=== PATIENT | male | born 1995 | race Caucasian/White ===

== ENCOUNTER 2022-02-04 17:24 | Emergency (ER) | payer OTHER, SELFPAY ==
[2022-02-04 17:32] VITALS: BP 174/74; PULSE 85; RESP 14; TEMP 37.1; O2SAT 99; BMI 29.2
--- NOTE | 2022-02-04 17:36 | DI.RAD.S_ITS ---
PROCEDURE: XR KNEE LT 3V INDICATIONS: knee pain,heard a pop while weight lifting. TECHNIQUE: 3 views of the knee were acquired. COMPARISON: None. FINDINGS: Bones: No fractures or dislocations. No suspicious bony lesions. Soft tissues: No joint effusion. No suspicious soft tissue calcifications. IMPRESSION: No acute finding. Dictated by: Santos Swann M.D. on 02/04/2022 at 17:53 Approved by: Santos Swann M.D. on 02/04/2022 at 17:54
--- NOTE | 2022-02-04 17:42 | ED_ITS ---
HPI - Extremity Injury (Lower) <FLAQUITA Moseley - Last Filed: 02/04/22 20:08> General Chief Complaint: Extremity Injury, Lower Stated Complaint: lt knee to ankle pain Time Seen by Provider: 02/04/22 17:37 History of Present Illness HPI Narrative: This is a 26-year-old male who presents to the emergency department for left knee pain after he was lifting something heavy at work prior to arrival in a squatting position and went to stand from squatting felt a pop on the medial/patellar region of his left knee with shooting pain down his left leg to his ankle. He denies any ongoing nerve pain or shooting pain from his knee to his ankle. He states that he feels pain with any sudden movement or unexpected movements. He is bearing weight and tolerates it with pain. He denies any open wound. 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 Related Data Allergies Allergy/AdvReac Type Severity Reaction Status Date / Time No Known Drug Allergies Allergy Verified 02/04/22 17:37 Review of Systems <FLAQUITA Moseley - Last Filed: 02/04/22 20:08> Review of Systems Narrative: Review of systems is negative for acute abnormalities unless otherwise noted in HPI Patient History <FLAQUITA Moseley - Last Filed: 02/04/22 20:08> Social History Smoking Status: Unknown if ever smoked Exam <FLAQUITA Moseley - Last Filed: 02/04/22 20:08> Narrative Exam Narrative: Reviewed vitals signs and nursing notes. General: cooperative, comfortable, in no acute distress, well groomed HEENT: symmetrical facial expressions, moist mucous membranes Cardiovascular: regular rate and rhythm, no peripheral edema, warm extremities Respiratory: normal effort, able to speak in complete sentences, without wheezing, stridor, or abnormal breath sounds. No retractions or tachypnea. GI: abdomen soft, nontender to palpation, nondistended, without masses, rebound tenderness or exquisite tenderness with exam. MSK: moves all extremities, neurovascularly intact, no weakness, normal tone, left knee without any suprapatellar effusion, negative Nicki's, no tenderness over patellar tendon, MCL or LCL, negative Saravia squeeze test, no increased laxity with varus and valgus testing. Patient is ambulatory without deficit, no weakness, PT and DP pulses are 2+, no tenderness over ATFL or CFL, medial or lateral malleoli, dorsiflexion and plantar extension intact without deficit. Skin: brisk capillary refill, without pallor or erythema Neuro: normal speech and cognition, A&O x3, ambulatory, clear speech Psych: mental status is grossly normal, congruent mood, normal affect, pleasant and cooperative Initial Vital Signs Initial Vital Signs: Vital Signs Temperature 98.8 F 02/04/22 17:32 Pulse Rate 85 02/04/22 17:32 Respiratory Rate 14 02/04/22 17:32 Blood Pressure 174/74 H 02/04/22 17:32 Pulse Oximetry 99 02/04/22 17:32 Oxygen Delivery Method 02/04/22 17:32 <Reshma Gonzalez DO - Last Filed: 02/10/22 08:39> Initial Vital Signs Initial Vital Signs: Vital Signs Temperature 98.8 F 02/04/22 17:32 Pulse Rate 85 02/04/22 17:32 Respiratory Rate 14 02/04/22 17:32 Blood Pressure 174/74 H 02/04/22 17:32 Pulse Oximetry 99 02/04/22 17:32 Oxygen Delivery Method 02/04/22 17:32 Course <FLAQUITA Moseley - Last Filed: 02/04/22 20:08> Orders Ordered: Discontinued Medications Ibuprofen (Ibuprofen 400 Mg Tablet) 800 mg PO NOW ONE Stop: 02/04/22 17:45 Last Admin: 02/04/22 17:48 Dose: 800 mg Documented By: CTS Vital Signs Vital signs: Vital Signs - 8 hr 02/04/22 17:32 02/04/22 17:58 02/04/22 17:59 Temperature 98.8 F Pulse Rate 85 93 H Respiratory Rate 14 Blood Pressure 174/74 H Pulse Oximetry 99 99 99 Oxygen Delivery Method Room Air 02/04/22 17:59 02/04/22 19:00 02/04/22 19:00 Temperature Pulse Rate 91 H Respiratory Rate Blood Pressure 156/69 H 142/67 H Pulse Oximetry 100 Oxygen Delivery Method <Reshma Gonzalez DO - Last Filed: 02/10/22 08:39> Orders Ordered: Discontinued Medications Ibuprofen (Ibuprofen 400 Mg Tablet) 800 mg PO NOW ONE Stop: 02/04/22 17:45 Last Admin: 02/04/22 17:48 Dose: 800 mg Documented By: CTS Vital Signs Vital signs: Vital Signs - 8 hr 02/04/22 17:32 02/04/22 17:58 02/04/22 17:59 Temperature 98.8 F Pulse Rate 85 93 H Respiratory Rate 14 Blood Pressure 174/74 H Pulse Oximetry 99 99 99 Oxygen Delivery Method Room Air 02/04/22 17:59 02/04/22 19:00 02/04/22 19:00 Temperature Pulse Rate 91 H Respiratory Rate Blood Pressure 156/69 H 142/67 H Pulse Oximetry 100 Oxygen Delivery Method MDM - Extremity Injury (Lower) <Heather York [facility] - Last Filed: 02/04/22 20:08> Imaging Data Extremity x-ray #1: Radiologist's Impression: PROCEDURE:? XR ANKLE LT MIN 3V ? INDICATIONS:? ankle injury weeks ago ? TECHNIQUE:? 3 views of the ankle were acquired.? ? COMPARISON:? None. ? FINDINGS:? ? Bones:? No fracture, dislocation, or suspicious bone lesion.? Ankle mortise congruent and maintained. ? Soft tissues:? No tibiotalar joint effusion.? Achilles tendon appears normal.? ? ? IMPRESSION:? No acute finding. ? Dictated by: Santos Swann M.D. on 02/04/2022 at 18:32 ? ? Approved by: Santos Swann M.D. on 02/04/2022 at 18:33 ? Extremity x-ray #2: Radiologist's Impression: PROCEDURE:? XR KNEE LT 3V ? INDICATIONS:? knee pain,heard a pop while weight lifting. ? TECHNIQUE:? 3 views of the knee were acquired.? ? COMPARISON:? None. ? FINDINGS:? ? Bones:? No fractures or dislocations.? No suspicious bony lesions.? ? Soft tissues:? No joint effusion.? No suspicious soft tissue calcifications.? ? ? IMPRESSION:? No acute finding. ? ? Dictated by: Santos Swann M.D. on 02/04/2022 at 17:53 ? ? Approved by: Santos Swann M.D. on 02/04/2022 at 17:54 ? 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 He had x-rays today of his right knee and right ankle without any acute findings or abnormalities. His right knee and right ankle exam were without any significant findings either. Recommend patient follow-up with [facility] prior to return to work, he can follow-up with [facility] when [facility] approves this evaluation. He was given ibuprofen in the emergency department and states that he felt better, he is ambulatory without any deficit, does not have any knee effusion or neurovascular compromise. Recommend ice, elevation, avoid overuse. Follow-up with [facility]. Patient is appropriate and amenable to discharge home. Vital signs are stable on repeat examination is unremarkable. Patient has been informed of results. Patient has been given strict return to ER precautions for any new or worsening symptoms. Patient understands to follow up closely with outpatient providers as instructed. Patient understands plan and agrees to discharge home. All questions and concerns answered at this time. Discharge Plan Departure Patient Disposition: Home Clinical Impression: Injury of knee, left Qualifiers: Encounter type: initial encounter Qualified Code(s): S89.92XA - Unspecified injury of left lower leg, initial encounter Instructions: Knee Sprain, DI for Knee Sprain Activity Restrictions/Additional Instructions: *You have been diagnosed with a knee injury. The pop sensation could be ligamental injury, from the meniscus, or nerve pain from movement. Your x-rays of your knee and ankle do not show any joint effusions, fractures, or acute bony abnormalities. It is possible that there is muscular strain and sprain as well. Please immobilize your knee in a knee brace as needed (pun intended). Avoid overuse or over exertion, if it starts feeling better with gentle mobility, please. Please wear a knee brace if you feel instability in your knee, there is no fluid within the joint treated as if it is a sprain unless it does not get better or if it gets any worse than follow-up with orthopedics is indicated. If you have worsening of this please follow-up at [facility]. Please see your primary care provider if this is ongoing and you have already seeing orthopedics. Get cleared by [facility] prior to returning to duty. *What to do: *Please continue to take your regular medications as directed. [ ] New medication prescriptions sent to your pharmacy: [ ] [ ] New medication written as a paper prescription [ x] No new medications given *Please follow up with your primary care provider in 2-3 days, call for an appointment. Let them know you were seen in the Emergency Department and that we asked that you be seen for follow-up. We will electronically transmit a record of today's note if your PCP is in our system *If you do not have a primary care provider please contact [phone] to [facility] with one of the [facility] primary care providers. *Return to Emergency Department if you should have any new, worsening, or concerning symptoms, such as [fever greater than 101F, chills, worsening pain, persistent vomiting or other bothersome symptoms]. Referrals: [facility] [Provider Group] - 5-7 days Provider,Verito ZAMBRANO [Primary Care Provider] - Visit Report Forms: Patient Portal/API <Reshma Gonzalez DO - Last Filed: 02/10/22 08:39> Cosign ED Attending Veliaature Attestation: I was immediately available in the department for consultation. Documentation has been reviewed. I agree with assessment and plan.
[2022-02-04] MEDS: IBUPROFEN 400 MG TABLET 800 MG PO (17:48)
[2022-02-04 17:58] VITALS: O2SAT 99
[2022-02-04 17:59] VITALS: BP 156/69; PULSE 93; O2SAT 99
--- NOTE | 2022-02-04 18:03 | PC.NURSE ---
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
--- NOTE | 2022-02-04 18:14 | DI.RAD.S_ITS ---
PROCEDURE: XR ANKLE LT MIN 3V INDICATIONS: ankle injury weeks ago TECHNIQUE: 3 views of the ankle were acquired. COMPARISON: None. FINDINGS: Bones: No fracture, dislocation, or suspicious bone lesion. Ankle mortise congruent and maintained. Soft tissues: No tibiotalar joint effusion. Achilles tendon appears normal. IMPRESSION: No acute finding. Dictated by: Santos Swann M.D. on 02/04/2022 at 18:32 Approved by: Santos Swann M.D. on 02/04/2022 at 18:33
[2022-02-04 19:00] VITALS: BP 142/67; PULSE 91; O2SAT 100
== END 2022-02-04 19:05 | disposition home or self-care (01) ==
PROVIDERS: Emergency Provider Nurse Practitioner Critical Care Medicine
DX: S89.92XA Unspecified injury of left lower leg, initial encounter (principal); X50.0XXA Overexertion from strenuous movement or load, initial encounter
CPT/HCPCS: 73562; 73610; 99283

== ENCOUNTER 2024-10-28 11:42 | Emergency (ER) | payer OTHER, SELFPAY ==
[2024-10-28 11:44] VITALS: BP 153/78; PULSE 85; RESP 16; TEMP 36.3; O2SAT 95; BMI 33.3
--- NOTE | 2024-10-28 12:04 | ED.BACK ---
HPI - Back Pain/Injury <Alis Aj PA-C - Last Filed: 10/28/24 14:52> General Chief Complaint: Back Pain/Injury Stated Complaint: Back Pain Time Seen by Provider: 10/28/24 12:16 History of Present Illness HPI Narrative: Mr. 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 Patient states he always has some mild low back pain. Yesterday he was lifting heavy tasks at home, did not recall a specific injury however when he woke up this morning he was feeling more sore than usual. He bent down to pick something up and developed acute pain of the back. States the pain is pretty much his entire back muscles however the pain is worse in the right low back and the right thoracic back region. He occasionally feels a tingling sensation in his right leg. Standing straight up makes the pain better, moving around makes it worse. He denies taking any medications prior to arrival. Denies any bowel or bladder incontinence or dysfunction, fevers, chills, weakness, fevers, abdominal pain, chest pain, history of IV drug use, hematuria, dysuria. No surgical hx or prescription medications. Related Data Previous Rx's Medication Instructions Recorded methocarbamol 500 mg tablet 500 mg PO TID PRN muscle spasm #14 10/28/24 tabs prednisone 20 mg tablet 40 mg (2 x 20 mg) PO DAILY 5 days 10/28/24 #10 tabs Allergies Allergy/AdvReac Type Severity Reaction Status Date / Time No Known Drug Allergies Allergy Verified 02/04/22 17:37 Review of Systems <Alis Aj PA-C - Last Filed: 10/28/24 14:52> Review of Systems ROS Unobtainable: All systems reviewed & are unremarkable except as noted in HPI and below Patient History <KINSEY Wilhelm Last Filed: 10/28/24 14:52> alcohol intake frequency: a few times a week Exam <Alis Aj PA-C - Last Filed: 10/28/24 14:52> Narrative Exam Narrative: GENERAL: 29 year old patient appears stated age. Well-developed patient, in no acute distress. HEAD: Atraumatic. Normocephalic. EYES:No scleral icterus. No injection or drainage. NECK: Trachea midline. Cervical ROM intact. CARDIOVASCULAR: Regular rate and rhythm. RESPIRATORY: ?Nonlabored respirations. ?Speaking in clear, full sentences. ?Clear to auscultation. Breath sounds equal bilaterally. No wheezes, rales, or rhonchi. ? GASTROINTESTINAL: Abdomen soft, non-tender, nondistended. EXTREMITIES: No edema or joint tenderness. Strong DP and PT pulses, 5/5 BL plantar/dorsiflexion strength. BACK: No midline spinal tenderness, no pain reproducible with palpation however patient notes worse subjective pain in the right paraspinal lumbar region and right paraspinal thoracic region just below the scapula. NEURO: AOx3. ?Clear speech. ?Moves all 4 extremities appropriately. Steady gait. Sensation intact to light touch in the bilateral lower extremities. SKIN: No rash or erythema of visible areas Initial Vital Signs Initial Vital Signs: Vital Signs Temperature 97.4 F L 10/28/24 11:44 Pulse Rate 85 10/28/24 11:44 Respiratory Rate 16 10/28/24 11:44 Blood Pressure 153/78 H 10/28/24 11:44 Pulse Oximetry 95 10/28/24 11:44 Oxygen Delivery Method Room Air 10/28/24 11:44 <Juliet Boston DO - Last Filed: 10/30/24 16:46> Initial Vital Signs Initial Vital Signs: Vital Signs Temperature 97.4 F L 10/28/24 11:44 Pulse Rate 85 10/28/24 11:44 Respiratory Rate 16 10/28/24 11:44 Blood Pressure 153/78 H 10/28/24 11:44 Pulse Oximetry 95 10/28/24 11:44 Oxygen Delivery Method Room Air 10/28/24 11:44 Course <Alis Aj PA-C - Last Filed: 10/28/24 14:52> Orders Ordered: Discontinued Medications Acetaminophen (Acetaminophen 325 Mg Tablet) 975 mg PO NOW ONE Stop: 10/28/24 12:04 Last Admin: 10/28/24 12:11 Dose: 975 mg Documented By: LANCE Ketorolac Tromethamine (Ketorolac 30 Mg/Ml Vial) 30 mg IM NOW ONE Stop: 10/28/24 12:04 Last Admin: 10/28/24 12:13 Dose: 30 mg Documented By: LANCE Prednisone (Prednisone 20 Mg Tablet) 40 mg PO NOW ONE Stop: 10/28/24 12:04 Last Admin: 10/28/24 12:12 Dose: 40 mg Documented By: LANCE Vital Signs Vital signs: Vital Signs - 8 hr 10/28/24 11:44 10/28/24 12:37 Temperature 97.4 F L 97.5 F L Pulse Rate 85 84 Respiratory Rate 16 18 Blood Pressure 153/78 H Pulse Oximetry 95 96 Oxygen Delivery Method Room Air Room Air <Juliet Boston DO - Last Filed: 10/30/24 16:46> Orders Ordered: Discontinued Medications Acetaminophen (Acetaminophen 325 Mg Tablet) 975 mg PO NOW ONE Stop: 10/28/24 12:04 Last Admin: 10/28/24 12:11 Dose: 975 mg Documented By: LANCE Ketorolac Tromethamine (Ketorolac 30 Mg/Ml Vial) 30 mg IM NOW ONE Stop: 10/28/24 12:04 Last Admin: 10/28/24 12:13 Dose: 30 mg Documented By: LANCE Prednisone (Prednisone 20 Mg Tablet) 40 mg PO NOW ONE Stop: 10/28/24 12:04 Last Admin: 10/28/24 12:12 Dose: 40 mg Documented By: LANCE Vital Signs Vital signs: Vital Signs - 8 hr 10/28/24 11:44 10/28/24 12:37 Temperature 97.4 F L 97.5 F L Pulse Rate 85 84 Respiratory Rate 16 18 Blood Pressure 153/78 H Pulse Oximetry 95 96 Oxygen Delivery Method Room Air Room Air MDM - Back Pain/Injury <Alis Aj PA-C - Last Filed: 10/28/24 14:52> Medical Records Attestation: I reviewed the patient's medical records. 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 Differential diagnosis includes but is not limited to lumbar strain, sprain, herniated disc, lumbar radiculopathy, sciatica, degenerative disc disease, spinal stenosis, nephrolithiasis, etc. On exam the patient is in no acute distress, nontoxic appearing, vital signs appropriate, ambulatory. Lower extremities are neurovascularly intact with good pulses, sensation, strength. He is having diffuse back pain after a bending injury this morning. He does have a history of some chronic low back pain. Intermittent right radicular leg symptoms. No red flag symptoms of bowel or bladder dysfunction, saddle anesthesia, trauma, fevers, IV drug use, history of cancer diabetes. Physical exam reveals no spinal tenderness, no rashes. Pain is reproducible with movement and going from sitting to standing position. Will check POC UA - negative. We will treat in the ED with Toradol, Tylenol, prednisone. Will prescribe 5 day course of prednisone, muscle relaxers, also encouraged ibuprofen and Tylenol, heat therapy, rest, gentle stretching. Discussed follow up with PCP who may refer to ortho if needed for persistent symptoms, discussed strict ED return precautions and risks of muscle relaxers. Patient verbalized understanding of all information is agreeable with the plan. He is stable for discharge home. <Juliet Boston DO - Last Filed: 10/30/24 16:46> Lab Data Labs: Urine Dip Bedside Urine Glucose Negative Bedside Urine Bilirubin - Negative Bedside Urine Ketone - Negative Urine Specific [place] 1.010 Bedside Urine Occult Blood - Negative Bedside Urine pH 7 Bedside Urine Protein - Negative Bedside Urine Urobilinogen - Negative Bedside Urine Nitrite - Negative Bedside Urine Leukocytes - Negative Esterase Discharge Plan Departure Patient Disposition: Home Clinical Impression: Acute right lumbar radiculopathy Lumbar strain Qualifiers: Encounter type: initial encounter Qualified Code(s): S39.012A - Strain of muscle, fascia and tendon of lower back, initial encounter Instructions: DI for Lumbar Radiculopathy Activity Restrictions/Additional Instructions: Dear Jh, Thank you for coming to the emergency department. Today your symptoms are concerning for a strain of your back muscles, in addition to some nerve compression called lumbar radiculopathy. I would like you to complete the course of steroids in addition to using [id number] acetaminophen/Tylenol and ibuprofen/Motrin/Advil. Please rest, avoid heavy lifting or bending over but also avoid prolonged bed rest -- frequent gentle movement and stretching as advised. Using heat on the low back can help loosen up the muscles. You may also use the prescribed muscle relaxer but please be aware that this medication can make you drowsy so he should not use this medication via going to be working, driving, drinking alcohol. You should take steroids / ibuprofen with food, and separate when you take these medications if possible. Steroids should be taken in the beginning of the day to avoid insomnia. Please take Ibuprofen (Motrin/Advil) or Acetaminophen (Tylenol) for pain. These are available over the counter. You may take Ibuprofen 600 mg every 8 hours with food for pain. You may also take Acetaminophen 650 mg every 4-6 hours for pain. Do not exceed 3000 mg of Tylenol a day as this can cause liver damage. Do not drink alcohol with either of these medications. Please follow up with your primary care doctor, if your symptoms are not improving they may refer you to orthopedics for further evaluation. Typically pain from this type of injury will take a few weeks to completely resolve but it should start to get better with the above regimen. Please return to the emergency department if you develop any new or worsening symptoms such as but not limited to weakness, bloody urine, fevers, severe pain or other concerns. Please follow up with your primary care doctor within the next 2-3 days for ER follow-up. (If you do not have a PCP you can call [phone]. ?to schedule an appointment with an [facility] Primary Care Provider) IF YOU DEVELOP ANY NEW OR WORSENING SYMPTOMS, RETURN TO THE ER! Please read the attached instructions, they highlight more specific treatments and interventions for you at home. Thank you for letting me participate in your care, Alis Aj PA-C Prescriptions: New prednisone 20 mg tablet 40 mg PO DAILY 5 Days Qty: 10 0RF Rx Instructions: start 10/29/24 methocarbamol 500 mg tablet 500 mg PO TID PRN (Reason: muscle spasm) Qty: 14 0RF Rx Instructions: can take up to 1,000mg per dose. Referrals: Provider,Verito ZAMBRANO [Primary Care Provider] - Stand Alone Forms: Patient Portal/API/Survey, Work Release Note ED Sign-out <Juliet Boston DO - Last Filed: 10/30/24 16:46> Cosign ED Attending Denys Attestation: I was immediately available in the department for consultation.
[2024-10-28] MEDS: ACETAMINOPHEN 325 MG TABLET 975 MG PO (12:11)
[2024-10-28] MEDS: predniSONE 20 MG TABLET 40 MG PO (12:12)
[2024-10-28] MEDS: KETOROLAC 30 MG/ML VIAL IM (12:13)
[2024-10-28 12:37] VITALS: PULSE 84; RESP 18; TEMP 36.4; O2SAT 96
== END 2024-10-28 12:37 | disposition home or self-care (01) ==
PROVIDERS: Emergency Provider Physician Assistant
DX: S39.012A Strain of muscle, fascia and tendon of lower back, initial encounter (principal); M54.16 Radiculopathy, lumbar region
CPT/HCPCS: 81003; 96372; 99283; J1885